=== PATIENT | female | born 1945 | race Caucasian/White ===

== ENCOUNTER → 2016-07-09 | Outpatient (CLI) | payer OTHER ==
[~2016-07-09] MED LIST: ASPI-435 PO; ASPI81TA28 PO; AZEL30SP; B-COTAB18 PO; CALC500C70 PO; CHOL100010 PO; CLON1TAB3 PO; CYCL5TAB PO; DIAZ10TA3 PO; ESTR0.5T3 PO; FERR325T51 PO; FLUT0.0529 NAE; GABA1CAP PO; GREE150C5 PO; HYDR-4079 PO; IMD/2 PO; LEVO112T2 PO; LEVO125T72 PO; LUTE15CA PO; OMEG10007 PO; OXYC15TA89 PO; OXYC20TA50 PO; POLY335025 PO; PRLSR20 PO; PROG1CAP PO; QUET1TAB7 PO; RISE150T PO
[2016-07-09 19:11] LABS: URINE APPEARANCE CLEAR (CLEAR); URINE BILIRUBIN NEG (NEG); URINE COLOR DK YELLOW; URINE NITRITE NEG (NEG); UROBILINOGEN NEG (NEG)
[2016-07-09 19:12] LABS: MANUAL MICROSCOPIC REQUIRED? NO; REVIEW REQ? NO
== END | disposition home or self-care (01) ==
LOC: C.LAB 18:43
PROVIDERS: ATTEND Obstetrics & Gynecology
DX: R39.9 Unspecified symptoms and signs involving the genitourinary system (principal)

== ENCOUNTER 2016-07-11 00:22 | Emergency (ER) | payer OTHER ==
[~2016-07-11] VITALS: Ht 160 cm; Wt 55.0 kg
[~2016-07-11 00:22] MED LIST changes: -ASPI81TA28 PO; -ESTR0.5T3 PO; -GABA1CAP PO; -GREE150C5 PO; -LEVO112T2 PO; -LEVO125T72 PO; -LUTE15CA PO; -OMEG10007 PO; -OXYC20TA50 PO; -PROG1CAP PO
[2016-07-11 00:38] VITALS: BP 123/57; TEMP 36.7; Ht 160 cm; Wt 55.0 kg
[2016-07-11] MEDS ORDERED: XYLOCAINE 1%/SOD BICARB 20 ML VIAL INFIL ONE (01:00)
[2016-07-11] MEDS ORDERED: OXYC20TA50 PO ×2 (01:40→01:41)
--- NOTE | 2016-07-11 02:30 | EMERGENCY ROOM VISIT NOTE ---
History Report prepared by Keeley: Zak Dunn Under the Supervision of: Dr. Jefferson Mancia M.D. First contact with patient: 00:46 Chief Complaint: FALL Stated Complaint: FELL,HIT HEAD,CUT FOREHEAD,S/P SPINAL SURGERY History of Present Illness The patient is a 70 year old female who presents to the Emergency Room with complaints of an acute fall that occurred earlier tonight. The patient landed on her right knee, then hit her right hand and head on the right side. The patient has chronic back pain secondary to a spinal fusion one month ago in [place]. She came to the ED to make sure her spine was not damaged. She does not have increased back pain. The patient has slight head and neck pain. She did not lose consciousness. She has not lost control of her bowel or bladder. She had pain medications prior to arrival. The patient is supposed to walk for one hour per day for her rehabilitation. She fell on her walk today when she was at [facility]. She believes her shoe stuck to the floor causing the fall. The patient has had a past surgery of the right knee performed by Dr. Kelley. Her tetanus is up to date. She is not on any blood thinners. Source of History: patient Onset: earlier tonight Position: other (global) Quality: other (fall) Timing: other (acute) Associated Symptoms: + headache, + neck pain, No LOC, No back pain, No urinary symptoms Review of Systems See HPI for pertinent positives & negatives. A total of 10 systems reviewed and were otherwise negative. Past Medical & Surgical Medical Problems: (1) Anxiety (2) Depression (3) Dyslipidemia (4) GERD (gastroesophageal reflux disease) (5) History of breast cancer (6) Hypothyroidism (7) Right knee DJD Surgical Problems: (1) H/O breast reconstruction (2) H/O nasal septoplasty (3) History of bladder surgery (4) History of mastectomy (5) Hx of excision of lamina of cervical vertebra for decompression of spinal cord Family History No pertinent family history Social History Smoking Status: Former Smoker Drug Use: none Marital Status: Housing Status: lives alone Occupation Status: retired Current/Historical Medications Scheduled Aspirin (Aspirin 81), 1 TAB PO QAM B-Complex Vitamins (Vitamin B Complex), 1 TAB PO QAM Calcium/Vitamin D (Os-Santo 500 Plus D), 2 TAB PO QPM Cholecalciferol (Vitamin D), 1,000 INTER.UNIT PO QAM Ferrous Sulfate (Iron Supplement), 1 TAB PO QAM Fluticasone Propionate (Nasal) (Flonase), 2 SPRY NEIL HS Levothyroxine Sodium (Synthroid), 125 MCG PO QAM Oxycodone Hcl (Oxycontin), 20 MG PO QAM Oxycodone Hcl (Oxycontin), 10 MG PO QPM Risedronate Sodium (Actonel), 1 TAB PO MONTHLY Scheduled PRN Clonazepam (Klonopin), 1 MG PO HS PRN for PN Cyclobenzaprine Hcl (Flexeril), 1 TAB PO HS PRN for Muscle Spasms Diazepam (Valium), 10 MG PO HS PRN for Sleep Hydrocodone/Acetaminophen 10MG/325MG ([place] 10MG/325MG), 0.5-1 TABS PO Q4H PRN for Pain Loperamide Hcl (Imodium), 2 MG PO DAILY PRN for PRN Omeprazole (Prilosec), 20 MG PO DAILY PRN for PRN Polyethylene Glycol 3350 (Miralax), 1 UNIT PO DAILY PRN for Constipation Quetiapine Fumarate (Seroquel), 50 MG PO HS PRN for Sleep Allergies Coded Allergies: Sulfa Antibiotics (Verified Allergy, Unknown, RASH, 07/11/16) Physical Exam Vital Signs Date Time Temp Pulse Resp B/P Pulse Ox O2 Delivery O2 Flow Rate FiO2 07/11/16 02:42 64 20 98 07/11/16 00:38 36.7 77 18 123/57 99 Room Air Physical Exam GENERAL: Patient is well appearing and in minimal distress. HEENT: 2.5 cm laceration to the right sabianism / face with mild venous oozing, no grossly contaminated. Mucous membranes moist, no nasal congestion, no scleral icterus. NECK: No stridor, no adenopathy, no meningismus, trachea is midline. Mild tenderness over right posterior neck, no midline tenderness. LUNGS: No dyspnea. Clear to auscultation and equal bilaterally. No wheeze, no rhonchi. HEART: Regular rate and rhythm. No murmurs, rubs, gallops appreciated. ABDOMEN: Soft, nontender, bowel sounds positive, no masses appreciated, no peritonitis. BACK: No midline tenderness, no CVA tenderness. Extensive midline back surgical scar, well healing. EXTREMITIES: Normal motion all extremities, no cyanosis, no edema. Tender to palpation of the right 5th metacarpal, full range of motion, normal sensation, normal capillary refill. Mild pain with range of the right knee with questionable crepitus initially which resolved after range of motion. NEUROLOGIC: Alert and oriented, no acute motor or sensory deficits, no focal weakness, cranial nerves grossly intact. SKIN: No rash, no jaundice, no diaphoresis. Skin is frail. Medical Decision & Procedures ER Provider Diagnostic Interpretation: X ray results and stated below per my interpretation. Other radiology results and stated below per my review and radiologist interpretation: CT Head: No intracranial hemorrhage or mass effect. CT C Spine: No acute fracture or dislocation. Multilevel degenerative spondylosis resulting in up to severe left neural foraminal narrowing at C4-C5. Radiologist: Misael Hopper MD. Three View Hand: No fracture or dislocation. Arthritic changes noted. Two View Right Knee: S/p knee replacement. Arthritic changes of patella. Possible slight effusion. No fracture or dislocation. Hardware in place. ED Course 0050: The patient was evaluated in room A2. A complete history and physical exam was performed. 0100: Lidocaine HCl 20 ml INFIL. 0230: Reevaluated the patient. Discussed results and discharge instructions: She verbalized understanding and agreement. The patient is ready for discharge. Medical Decision Differential: Intracranial Injury, Cervical Injury, Intrathoracic/Abdominal Injury, Neurologic Injuries, Fractures/Dislocations, Lacerations, Tetanus Status , amongst other pathologies entertained. 70 yr old very pleasant female with fall prior to arrival resulting right head injury and some neck, hand and knee pain. Imaging without ICH, fractures, dislocations. She recently had extensive back surgery though without any specifically new pains nor deficits seems reasonable to hold off on imaging. Sutured by oMde Hardwick PA-C. Stable and feeling well. Declines pain medications. Discussed wound care with patient and plan for suture removal. Impression Primary Impression: Fall Additional Impressions: Contusion of multiple sites, Laceration of face, Cervical spine degeneration Scribe Attestation The scribe's documentation has been prepared under my direction and personally reviewed by me in its entirety. I confirm that the note above accurately reflects all work, treatment, procedures, and medical decision making performed by me. Departure Information Dispostion Home / Self-Care Referrals Dani Wilburn D.O. (PCP) Forms HOME CARE DOCUMENTATION FORM, IMPORTANT VISIT INFORMATION Patient Instructions A Signature Page, ED Laceration Facial Sutr Tape, [facility] Additional Instructions Follow up in 5-6 days with your primary care provider or ED for removal of your stitches.
--- NOTE | 2016-07-11 02:32 | EMERGENCY ROOM VISIT NOTE ---
ED Visit Note Patient seen and evaluated at the request of my attending physician, Dr. Mancia, for a right lateral eyebrow laceration. Please see Dr. Mancia's dictation for full history of present illness and Emergency Department course outside of this repair. In short, the patient had a fall earlier this evening, and suffered subsequent 2.5 cm laceration. The laceration does gape and will require repair. Laceration repair. Patient elects to have their laceration repaired. Verbal consent was obtained to perform the procedure. There is an abundance of materials available for the procedure. Patient is not allergic to latex. Using sterile technique the wound was cleaned with Betadine. The area was sterilely draped. 4 ml of 1% buffered lidocaine was used to anesthetize the right eyebrow laceration. Once the patient was anesthetized, the wound was copiously irrigated under pressure with sterile saline. The wound was explored and there were no deep structures injured such as tendons, bone, or significant blood vessels. The laceration was repaired using 3 simple interrupted 5-0 nylon sutures with the wound edges being well approximated. Hemostasis was achieved. The area was cleaned with sterile saline and dressed with bacitracin ointment and bandage. Patient tolerated the procedure well without complications. Blood loss was negligible. Problem List Medical Problems: (1) Anxiety Status: Chronic (2) Depression Status: Chronic (3) Dyslipidemia Status: Chronic (4) GERD (gastroesophageal reflux disease) Status: Chronic (5) History of breast cancer Status: Resolved (6) Hypothyroidism Status: Chronic (7) Right knee DJD Status: Chronic Surgical Problems: (1) H/O breast reconstruction Permanent Comment: bilateral Status: Resolved (2) H/O nasal septoplasty Permanent Comment: 1997 Status: Resolved (3) History of bladder surgery Permanent Comment: x 2 for stress incontinence Status: Resolved (4) History of mastectomy Permanent Comment: bilateral for breast ca Status: Resolved (5) Hx of excision of lamina of cervical vertebra for decompression of spinal cord Status: Resolved Current/Historical Medications Scheduled Aspirin (Aspirin 81), 1 TAB PO QAM B-Complex Vitamins (Vitamin B Complex), 1 TAB PO QAM Calcium/Vitamin D (Os-Santo 500 Plus D), 2 TAB PO QPM Cholecalciferol (Vitamin D), 1,000 INTER.UNIT PO QAM Ferrous Sulfate (Iron Supplement), 1 TAB PO QAM Fluticasone Propionate (Nasal) (Flonase), 2 SPRY NEIL HS Levothyroxine Sodium (Synthroid), 125 MCG PO QAM Oxycodone Hcl (Oxycontin), 20 MG PO QAM Oxycodone Hcl (Oxycontin), 10 MG PO QPM Risedronate Sodium (Actonel), 1 TAB PO MONTHLY Scheduled PRN Clonazepam (Klonopin), 1 MG PO HS PRN for PN Cyclobenzaprine Hcl (Flexeril), 1 TAB PO HS PRN for Muscle Spasms Diazepam (Valium), 10 MG PO HS PRN for Sleep Hydrocodone/Acetaminophen 10MG/325MG ([place] 10MG/325MG), 0.5-1 TABS PO Q4H PRN for Pain Loperamide Hcl (Imodium), 2 MG PO DAILY PRN for PRN Omeprazole (Prilosec), 20 MG PO DAILY PRN for PRN Polyethylene Glycol 3350 (Miralax), 1 UNIT PO DAILY PRN for Constipation Quetiapine Fumarate (Seroquel), 50 MG PO HS PRN for Sleep Allergies Coded Allergies: Sulfa Antibiotics (Verified Allergy, Unknown, RASH, 07/11/16) Vital Signs Date Time Temp Pulse Resp B/P Pulse Ox O2 Delivery O2 Flow Rate FiO2 07/11/16 00:38 36.7 77 18 123/57 99 Room Air Departure Information Referrals Dani Wilburn D.O. (PCP) Patient Instructions A Signature Page, [facility]
[2016-07-11 02:42] VITALS: PULSE 64; O2SAT 98
--- NOTE | 2016-07-11 06:45 | DIAGNOSTIC IMAGING REPORT ---
CT OF THE CERVICAL SPINE CLINICAL HISTORY: Neck pain status post trauma COMPARISON STUDY: No previous studies for comparison. CT DOSE: 889.27 mGy.cm TECHNIQUE: CT scan of the cervical spine was performed from the skull base to the thoracic inlet. Images are reviewed in the axial, sagittal, and coronal planes. IV contrast was not administered for this examination. FINDINGS: The visualized portions of the lung apices reveal no evidence of pneumothorax. The prevertebral soft tissues are normal. No fractures or subluxations are visualized. There are moderate multilevel degenerative changes. There is multilevel foraminal narrowing, most severe at the C4-5 level on the left. There is a cervical levoscoliosis. There is an 8 mm sclerotic lesion within the C6 vertebra, which the absence of a known malignancy likely represents a bone island. IMPRESSION: No evidence of acute fracture or traumatic subluxation. Electronically signed by: Matias Tucker M.D. 07/11/2016 6:43 AM
--- NOTE | 2016-07-11 07:07 | DIAGNOSTIC IMAGING REPORT ---
RIGHT HAND MIN 3 VIEWS ROUTINE CLINICAL HISTORY: Right lateral hand pain following fall. COMPARISON: None FINDINGS: No acute fracture is identified. There is moderate arthritis within several articulations of the right hand. The trapezium may have been resected. IMPRESSION: No acute fracture or dislocation of the right hand. Electronically signed by: Conner Hanna M.D. 07/11/2016 7:05 AM
--- NOTE | 2016-07-11 07:08 | DIAGNOSTIC IMAGING REPORT ---
RIGHT KNEE 3 VIEWS CLINICAL HISTORY: Right knee pain following fall. COMPARISON: Right knee radiographs May 11, 2016 FINDINGS: Alignment of the total right knee arthroplasty is anatomic. There is no acute fracture. Hardware is intact. No definite joint effusion is identified. IMPRESSION: Status post total right knee arthroplasty. Hardware intact. No fracture. Electronically signed by: Conner Hanna M.D. 07/11/2016 7:06 AM
--- NOTE | 2016-07-11 07:13 | DIAGNOSTIC IMAGING REPORT ---
CT OF THE HEAD WITHOUT CONTRAST CLINICAL HISTORY: Fall with facial injury. COMPARISON STUDY: MRI of the brain March 15, [address] of the sinuses November 19, 2014. TECHNIQUE: Helical axial images of the head were obtained without IV contrast. Automated exposure control was utilized for the study. FINDINGS: No acute intracranial hemorrhage, midline shift or mass effect is present. Ventricular system is stable. Basilar cisterns are patent. No extra-axial collections are present. Do-white differentiation is preserved. There is deformity of both nasal bones which is likely old. This is similar to exam of November 19, 2013. No calvarial fracture is identified. IMPRESSION: 1. No acute intracranial findings. 2. No calvarial fracture. 3. Old bilateral nasal bone fractures. Electronically signed by: Conner Hanna M.D. 07/11/2016 7:12 AM
[2016-07-20] MEDS ORDERED: LEVO125T72 PO (12:42)
[2016-11-01] MEDS ORDERED: RISE150T PO (14:40)
[2016-11-01] MEDS ORDERED: GREE150C5 PO (14:43)
[2016-11-01] MEDS ORDERED: ESTR0.5T3 PO (14:43)
[2016-11-01] MEDS ORDERED: LUTE15CA PO (14:43)
[2016-11-01] MEDS ORDERED: OMEG10007 PO (14:43)
[2016-11-01] MEDS ORDERED: ASPI81TA28 PO (14:43)
[2016-11-01] MEDS ORDERED: PROG1CAP PO (14:43)
[2016-11-02] MEDS ORDERED: GABA1CAP PO (09:55)
== END 2016-07-11 02:44 | disposition home or self-care (01) ==
LOC: C.EDB 00:25 → C.EDA 02:44
DX: T14.8 Other injury of unspecified body region (principal); S01.81XA Laceration without foreign body of other part of head, initial encounter; W19.XXXA Unspecified fall, initial encounter; M47.812 Spondylosis without myelopathy or radiculopathy, cervical region; K21.9 Gastro-esophageal reflux disease without esophagitis; E78.5 Hyperlipidemia, unspecified; E03.9 Hypothyroidism, unspecified; M17.11 Unilateral primary osteoarthritis, right knee; Z85.3 Personal history of malignant neoplasm of breast; F41.9 Anxiety disorder, unspecified; F32.9 Major depressive disorder, single episode, unspecified; Z87.891 Personal history of nicotine dependence; Z79.82 Long term (current) use of aspirin; Z79.899 Other long term (current) drug therapy

== ENCOUNTER 2016-07-20 22:18 | Emergency (ER) | payer OTHER ==
[~2016-07-20] VITALS: Ht 160 cm; Wt 54.3 kg
[~2016-07-20 22:18] MED LIST changes: -AZEL30SP; +LEVO125T72 PO; -OXYC15TA89 PO; +OXYC20TA50 PO
[2016-07-20 22:20] VITALS: Ht 160 cm; Wt 54.3 kg
[2016-07-20 22:41] VITALS: BP 115/63; PULSE 81; TEMP 36.5; O2SAT 98
[2016-07-20] MEDS ORDERED: LEVO112T2 PO (22:52)
--- NOTE | 2016-07-21 21:41 | EMERGENCY ROOM VISIT NOTE ---
ED Visit Note First contact with patient: 22:25 CHIEF COMPLAINT: Suture removal HISTORY OF PRESENT ILLNESS: This 70-year-old female patient returns to the ED today for removal of sutures that were placed 9 days ago. There has been no swelling, redness, or drainage from the wound. The patient feels like the laceration is healing well. REVIEW OF SYSTEMS: A 6 system review of systems was completed with positives and pertinent negatives listed in the HPI. PMH: Unchanged from previous visit. ALLERGIES: Sulfa PHYSICAL EXAM: Vital Signs: Reviewed Nurse's notes, vital signs stable. GENERAL : White female, in no acute distress. SKIN: There is a sutured wound on the right lateral eyebrow with no signs of infection. There is no erythema, swelling, or tenderness. EMERGENCY DEPARTMENT COURSE: 3 sutures were removed without any difficulty and there was no separation of the wound edges. The patient was discharged home in good condition. Problem List Medical Problems: (1) Anxiety Status: Chronic (2) Depression Status: Chronic (3) Dyslipidemia Status: Chronic (4) GERD (gastroesophageal reflux disease) Status: Chronic (5) History of breast cancer Status: Resolved (6) Hypothyroidism Status: Chronic (7) Right knee DJD Status: Chronic Surgical Problems: (1) H/O breast reconstruction Permanent Comment: bilateral Status: Resolved (2) H/O nasal septoplasty Permanent Comment: 1997 Status: Resolved (3) History of bladder surgery Permanent Comment: x 2 for stress incontinence Status: Resolved (4) History of mastectomy Permanent Comment: bilateral for breast ca Status: Resolved (5) Hx of excision of lamina of cervical vertebra for decompression of spinal cord Status: Resolved Current/Historical Medications Scheduled B-Complex Vitamins (Vitamin B Complex), 1 TAB PO QAM Calcium/Vitamin D (Os-Santo 500 Plus D), 2 TAB PO QPM Cholecalciferol (Vitamin D), 1,000 INTER.UNIT PO QAM Cyclobenzaprine Hcl (Flexeril), 1 TAB PO DAILY Ferrous Sulfate (Iron Supplement), 1 TAB PO BID Fluticasone Propionate (Nasal) (Flonase), 2 SPRY NEIL HS Levothyroxine Sodium (Synthroid), 125 MCG PO 5XWK Levothyroxine Sodium (Synthroid), 0.5 TAB PO MON&THUR Oxycodone Hcl (Oxycontin), 20 MG PO QAM Oxycodone Hcl (Oxycontin), 10 MG PO QPM Scheduled PRN Clonazepam (Klonopin), 1 MG PO HS PRN for PN Diazepam (Valium), 10 MG PO HS PRN for Sleep Hydrocodone/Acetaminophen 10MG/325MG ([place] 10MG/325MG), 0.5-1 TABS PO Q4H PRN for Pain Loperamide Hcl (Imodium), 2 MG PO DAILY PRN for PRN Omeprazole (Prilosec), 20 MG PO DAILY PRN for PRN Polyethylene Glycol 3350 (Miralax), 1 UNIT PO DAILY PRN for Constipation Quetiapine Fumarate (Seroquel), 50 MG PO HS PRN for Sleep Allergies Coded Allergies: Sulfa Antibiotics (Verified Allergy, Unknown, RASH, 07/11/16) Vital Signs Date Time Temp Pulse Resp B/P Pulse Ox O2 Delivery O2 Flow Rate FiO2 07/20/16 22:41 36.5 81 18 98 07/20/16 22:20 36.5 81 18 115/63 98 Room Air Departure Information Impression Primary Impression: Encounter for removal of sutures Dispostion Home / Self-Care Condition GOOD Referrals Dani Wilburn D.O. (PCP) Forms HOME CARE DOCUMENTATION FORM, IMPORTANT VISIT INFORMATION Patient Instructions [facility], ED Scar Tips to Minimize Additional Instructions Wash off any remaining debris and return to activity as tolerated.
[2016-11-01] MEDS ORDERED: RISE150T PO (14:40)
[2016-11-01] MEDS ORDERED: OMEG10007 PO (14:43)
[2016-11-01] MEDS ORDERED: ASPI81TA28 PO (14:43)
[2016-11-01] MEDS ORDERED: ESTR0.5T3 PO (14:43)
[2016-11-01] MEDS ORDERED: GREE150C5 PO (14:43)
[2016-11-01] MEDS ORDERED: PROG1CAP PO (14:43)
[2016-11-01] MEDS ORDERED: LUTE15CA PO (14:43)
[2016-11-02] MEDS ORDERED: GABA1CAP PO (09:55)
== END 2016-07-20 22:41 | disposition home or self-care (01) ==
LOC: C.EDB 22:19 → C.EDD 22:41
DX: Z48.02 Encounter for removal of sutures (principal); F41.9 Anxiety disorder, unspecified; E78.5 Hyperlipidemia, unspecified; E03.9 Hypothyroidism, unspecified; F32.9 Major depressive disorder, single episode, unspecified; K21.9 Gastro-esophageal reflux disease without esophagitis; Z85.3 Personal history of malignant neoplasm of breast; Z90.10 Acquired absence of unspecified breast and nipple; Z79.899 Other long term (current) drug therapy; Z88.2 Allergy status to sulfonamides

== ENCOUNTER → 2016-09-04 | Outpatient (CLI) | payer OTHER ==
[~2016-09-04] MED LIST changes: -ASPI-435 PO; +ASPI81TA28 PO; +ESTR0.5T3 PO; +GABA1CAP PO; +GREE150C5 PO; +LEVO112T2 PO; +LUTE15CA PO; +OMEG10007 PO; +PROG1CAP PO
--- NOTE | 2016-09-04 19:58 | DIAGNOSTIC IMAGING REPORT ---
SCOLIOSIS 2 VIEW (AP LAT) CLINICAL HISTORY: Scoliosis COMPARISON STUDY: 10/17/2015 FINDINGS: There is been interval thoracolumbar spinal rodding with placement of bilateral sacroiliac bolts. There are moderate multilevel degenerative changes. There is a lumbar levoscoliosis of 38 degrees. There is a thoracic dextroscoliosis of 21 degrees. IMPRESSION: 1. Thoracolumbar scoliosis as described above 2. Interval thoracolumbar spinal rodding with placement of bilateral sacroiliac bolts 3. No conventional radiographic evidence of hardware fracture Electronically signed by: Matias Tucker M.D. 09/04/2016 7:57 PM Dictated Date/Time: 09/04/2016 7:54 PM
== END | disposition home or self-care (01) ==
LOC: C.RAD 19:15
PROVIDERS: ATTEND Internal Medicine
DX: M41.115 Juvenile idiopathic scoliosis, thoracolumbar region (principal)

== ENCOUNTER → 2016-11-01 | Outpatient (CLI) | payer OTHER ==
--- NOTE | 2016-11-01 14:21 | DIAGNOSTIC IMAGING REPORT ---
VIDEO SWALLOW HISTORY: K44.9 Hiatal [id number] Schatzki's [id number] TECHNIQUE: Video fluoroscopic evaluation of swallowing was performed in the AP and lateral projections by the speech pathology staff. The patient is fed nectar-thick and thin liquid barium, a barium coated wafer, and barium pudding. FLUOROSCOPY TIME: 2.9 minutes. A cine loop submitted. COMPARISON STUDY: None. FINDINGS: There is normal hyoid excursion and epiglottic deflection. No significant penetration or aspiration identified. Swallowing function is within normal limits. Mild vallecular residue. Mild posterior impression along the upper esophagus from the small anterior osteophytes within the lower cervical spine. However, this does not result in significant stenosis. Mild esophageal dysmotility. IMPRESSION: 1. No aspiration identified. Mild vallecular residue. Mild esophageal dysmotility. 2. Please see the speech pathologist report for detailed findings and recommendations. Electronically signed by: Jaden Nguyen M.D. 11/01/2016 2:20 PM Dictated Date/Time: 11/01/2016 2:18 PM
--- NOTE | 2016-11-01 18:32 | SWALLOWING EVALUATION ---
REFERRING SPEECH PATHOLOGIST: n/a HISTORY: This 71 year-old female was referred for a VFSS at [facility] in order to address c/o intermittent dysphagia and coughing on her own secretions. The patient has a PMH significant for breast CA s/p bilateral mastectomy, GERD (omeprazole qd) with EGD one year ago that found a Schatzki's ring (was dilated) and hiatal hernia, falls s/p placement of titanium rods from T-spine through lumbar spine, hypothyroidism and anxiety/depression. The patient has an EGD scheduled for 11/02/16. Currently the patient's diet level is regular. PROCEDURE: The patient was seen in the Radiology Department of [facility] for the VFSS. Cursory examination of the oral cavity revealed adequate dentition. Movement of the articulators was WNL. The patient was seated on a stool and was viewed in both the Anterior-Posterior (A-P) and Lateral planes. Volitional phonation exercises completed in the A-P plane revealed bilateral vocal fold movement and vocal intensity within functional limits. In the lateral plane, the patient was given the following boluses: 1 tsp. thin liquid barium x 2, sequential swallows of thin liquid barium self-presented from a cup, 1 tsp. nectar-thick liquid barium, single swallow nectar-thick liquid barium self-presented from a cup, 1 tsp. barium pudding, and 1 club cracker with barium pudding. The patient was then repositioned into the A-P plane and given the following boluses: 1 tsp. barium pudding followed by liquid wash with single swallow thin liquid barium self-presented from a cup. RESULTS: Oral Stage: Lip closure, tongue control during oral bolus hold, bolus preparation, and bolus transport were WNL. There was no oral residue after the swallow. Initiation of the pharyngeal swallow occurred when the bolus head was at the posterior angle of the ramus. The oral stage of the swallow was WNL. Pharyngeal Stage: Soft palate elevation and laryngeal elevation were complete. Anterior hyoid excursion was incomplete. Epiglottic inversion and laryngeal vestibular closure were complete. Pharyngeal stripping wave was present. Pharyngeal contraction was complete. There was partial distention and duration of PES opening. Tongue base retraction was complete. There was no significant pharyngeal residue after the swallow. There was no penetration or aspiration during this study. Movement through the UES was partially obstructed due to incomplete hyoid excursion and incomplete PES opening. The pharyngeal stage of the swallow was functionally WNL. Esophageal Stage: Marked dysmotility in the proximal esophagus as a pudding bolus transited the esophagus. Thin liquid wash was effective in clearing the bolus from the esophagus. SUMMARY/RECOMMENDATIONS: This patient presents with normal oral-pharyngeal swallow function; however she demonstrated s/s esophageal dysfunction. The following is recommended: 1. Regular as tolerated; choose SLIPPERY foods (written information given re: slippery diet for esophageal dysfunction) 2. Compensatory Strategies: Alternate solids with liquids during meals; sit FULLY UPRIGHT with all oral intake and for 20-30 minutes following meals; keep head of bed elevated AT LEAST 30-degrees at all times-especially when sleeping 3. Complete EGD as scheduled. A summary of the results and recommendations was discussed with the patient immediately following the study. She is anticipating f/u with the referring physician including EGD scheduled for 11/02/16. Thank you for referral of this patient. Please contact me at if any additional information is needed.
== END | disposition home or self-care (01) ==
LOC: C.RAD 13:17
PROVIDERS: ATTEND Internal Medicine
DX: K44.9 Diaphragmatic hernia without obstruction or gangrene (principal); K22.2 Esophageal obstruction; R13.10 Dysphagia, unspecified

== ENCOUNTER → 2016-11-02 | Day surgery (SDC) | payer OTHER ==
[2016-11-01 14:45] VITALS: Ht 160 cm; Wt 53.2 kg
[~2016-11-02] VITALS: Ht 160 cm; Wt 53.2 kg
[~2016-11-02] MED LIST changes: -CLON1TAB3 PO; +LIDOCAINE HCL 2% 2 ML VIAL (20MG/ML) ONE; +MIDAZOLAM HCL 1 MG/ML 2ML VIAL ONE; +ONDANSETRON INJ 2 MG/ML 2 ML VIAL ONE; +PROPOFOL IV EMULSION 10 MG/ML 20 ML VIAL IV ONE
--- NOTE | 2016-11-02 10:15 | Endo History and Physical ---
History & Physical Date of Service: Nov 02, 2016. Chief Complaint: Dysphagia, Schatzki 's ring, Hiatal hernia Referring Physician: Dani Wilburn History of Present Illness 71 yo CF who presents for EGD secondary to dysphagia, Schatzki's ring and Hiatal hernia. Past Medical History Arthritis, Reflux, Blood Dyscrasias, High Cholesterol, Thyroid Disease, Other Past Surgical History Hx Cardiac Surgery: No Hx Internal Defibrillator: No Hx Pacemaker: No Hx Abdominal Surgery: No Hx of Implantable Prosthesis: No Hx Post-Op Nausea and Vomiting: No Hx Cancer Surgery: Yes (BLT MASTECTOMY WITH IMPLANT BASED RECONSTRUCTION) Hx Thoracic Surgery: No Hx Orthopedic: Yes (7-4 TO PELVIC FUSION, LT/RT BUINONECTOMY,MULT KNEE REPAIRS, THUMB SURGERY X2) Hx Urinary Tract Surgery: Yes (BLADDER SURGERY X2) Family History None Social History Smoking Status: Former Smoker Hx Substance Use: Yes ("MARIJUANA USE AGES AGO") Hx Alcohol Use: Yes (OCCASIONAL) Allergies Coded Allergies: Sulfa Antibiotics (Verified Allergy, Unknown, RASH, 11/01/16) Current Medications Reported Home Medications Medications Dose Route/Sig Max Daily Dose Days Date Category Dose Instructions Neurontin (Gabapentin) 100 Mg Cap 2 Cap PO TID 30 11/02/16 Reported Green Tea Extract (Green Tea (Camillia Sinensis)) 150 Mg Cap 1 Cap PO DAILY 11/01/16 Reported Progesterone (Progesterone Micronized) 100 Mg Cap 1 Cap PO AFTERNOON 11/01/16 Reported Estradiol 0.5 Mg Tab 1 Tab PO QAM 11/01/16 Reported Aspirin Ec (Aspirin) 81 Mg Tab 81 Mg PO DAILY 11/01/16 Reported Lutein (Lutein-Zeaxanthin) 1 Cap Cap 1 Cap PO QAM 11/01/16 Reported [place]-3 (Fish Oil) 1 Ea Cap 1 Cap PO DAILY 11/01/16 Reported Actonel (Risedronate Sodium) 150 Mg Tab 1 Tab PO MONTHLY 11/01/16 Reported Synthroid (Levothyroxine Sodium) 112 Mcg Tab 0.5 Tab PO MON&THUR 07/20/16 Reported Oxycontin (Oxycodone Hcl) 20 Mg Tab 10-20 Mg PO UD PRN 07/11/16 Reported Flexeril (Cyclobenzaprine Hcl) 5 Mg Tab 1 Tab PO BID PRN 09/28/15 Reported Iron Supplement (Ferrous Sulfate) 325 Mg Tab 1 Tab PO QAM 09/14/15 Reported Prilosec (Omeprazole) 20 Mg Capcr 20 Mg PO QAM 09/14/15 Reported Imodium (Loperamide HCl) 2 Mg Cap 2 Mg PO DAILY PRN 02/01/15 Reported Synthroid (Levothyroxine Sodium) 125 Mcg Tab 125 Mcg PO 5XWK 02/01/15 Reported [place] 500 Plus D (Calcium/Vitamin D) Tab 2 Tab PO QPM 02/01/15 Reported Flonase (Fluticasone Propionate (Nasal)) 50 Mcg/Act Spr 2 [place] NEIL HS PRN 02/01/15 Reported Vitamin D (Cholecalciferol) 1,000 Inter.unit Tab 1,000 Inter.unit PO QAM 02/01/15 Reported Vitamin B Complex (B-Complex Vitamins) 1 Tab Tab 1 Tab PO QAM 02/24/14 Reported Miralax (Polyethylene Glycol 3350) 1 Pow Pow 1 Unit PO DAILY PRN 02/24/14 Reported Valium (Diazepam) 10 Mg Tab 10 Mg PO HS PRN 02/24/[address] WITH MEDICATION Seroquel (Quetiapine Fumarate) 25 Mg Tab 50 Mg PO HS PRN 02/24/14 Reported [place] 10MG/325MG (Acetaminophen/Hydrocodone Bitart) Tab 0.5-1 Tabs PO Q4H PRN 02/24/14 Reported PRN PAIN Vital Signs Weight (Kilograms): 53.18 Height (Feet): 5 Height (Inches): 3 Date Time Temp Pulse Resp B/P Pulse Ox O2 Delivery O2 Flow Rate FiO2 11/02/16 10:04 36.4 46 20 93/55 100 Room Air Physical Exam General Appearance: WD/WN, no apparent distress Respiratory/Chest: Auscultation: breath sounds normal Cardiovascular: Heart Auscultation: RRR Abdomen: Bowel Sounds: normal Inspection & Palpation: soft, non-distended, no tenderness, guarding & rebound Assessment and Plan Assessment: 71 yo CF who presents for EGD secondary to dysphagia, Schatzki's ring and Hiatal hernia. Plan: Proceed with EGD.
--- NOTE | 2016-11-02 10:26 | Discharge Instructions ---
Endoscopy Patient Instructions Date / Procedure(s) Performed Nov 02, 2016. EGD Allergy Information Coded Allergies: Sulfa Antibiotics (Verified Allergy, Unknown, RASH, 11/01/16) Discharge Date / Findings Nov 02, 2016. Hiatal hernia Medication Instructions OK to resume all medications today as prescribed Reported Home Medications Medications Dose Route/Sig Max Daily Dose Days Date Category Dose Instructions Neurontin (Gabapentin) 100 Mg Cap 2 Cap PO TID 30 11/02/16 Reported Green Tea Extract (Green Tea (Camillia Sinensis)) 150 Mg Cap 1 Cap PO DAILY 11/01/16 Reported Progesterone (Progesterone Micronized) 100 Mg Cap 1 Cap PO AFTERNOON 11/01/16 Reported Estradiol 0.5 Mg Tab 1 Tab PO QAM 11/01/16 Reported Aspirin Ec (Aspirin) 81 Mg Tab 81 Mg PO DAILY 11/01/16 Reported Lutein (Lutein-Zeaxanthin) 1 Cap Cap 1 Cap PO QAM 11/01/16 Reported [place]-3 (Fish Oil) 1 Ea Cap 1 Cap PO DAILY 11/01/16 Reported Actonel (Risedronate Sodium) 150 Mg Tab 1 Tab PO MONTHLY 11/01/16 Reported Synthroid (Levothyroxine Sodium) 112 Mcg Tab 0.5 Tab PO MON&THUR 07/20/16 Reported Oxycontin (Oxycodone Hcl) 20 Mg Tab 10-20 Mg PO UD PRN 07/11/16 Reported Flexeril (Cyclobenzaprine Hcl) 5 Mg Tab 1 Tab PO BID PRN 09/28/15 Reported Iron Supplement (Ferrous Sulfate) 325 Mg Tab 1 Tab PO QAM 09/14/15 Reported Prilosec (Omeprazole) 20 Mg Capcr 20 Mg PO QAM 09/14/15 Reported Imodium (Loperamide HCl) 2 Mg Cap 2 Mg PO DAILY PRN 02/01/15 Reported Synthroid (Levothyroxine Sodium) 125 Mcg Tab 125 Mcg PO 5XWK 02/01/15 Reported Os-[place] 500 Plus D (Calcium/Vitamin D) Tab 2 Tab PO QPM 02/01/15 Reported Flonase (Fluticasone Propionate (Nasal)) 50 Mcg/Act Spr 2 [place] NEIL HS PRN 02/01/15 Reported Vitamin D (Cholecalciferol) 1,000 Inter.unit Tab 1,000 Inter.unit PO QAM 02/01/15 Reported Vitamin B Complex (B-Complex Vitamins) 1 Tab Tab 1 Tab PO QAM 02/24/14 Reported Miralax (Polyethylene Glycol 3350) 1 Pow Pow 1 Unit PO DAILY PRN 02/24/14 Reported Valium (Diazepam) 10 Mg Tab 10 Mg PO HS PRN 02/24/[address] WITH MEDICATION Seroquel (Quetiapine Fumarate) 25 Mg Tab 50 Mg PO HS PRN 02/24/14 Reported [place] 10MG/325MG (Acetaminophen/Hydrocodone Bitart) Tab 0.5-1 Tabs PO Q4H PRN 02/24/14 Reported PRN PAIN Provider Instructions Activity Restrictions - No exercising or heavy lifting for 24 hours. - Do not drink alcohol the day of the procedure. - Do not drive a car or operate machinery until the day after the procedure. - Do not make any important decisions or sign important papers in 24 hours after the procedure. Following Day: - Return to full activity which may include returning to work/school. Diet Start your diet with liquids and light foods (jello, soup, juice, toast). Then eat your usual diet if not nauseated. Treatment For Common After Affects For mild abdominal pain, bloating, or excessive gas: - Rest - Eat lightly - Lie on right side Follow-Up Information Follow-up with Dani Wilburn as scheduled Anesthesia Information What You Should Know You have had a procedure that required some medicine to reduce anxiety and discomfort. This treatment is called moderate sedation. After receiving the treatment, you may be sleepy, but you will be able to breathe on your own. The effects of the treatment may last for several hours. Follow these instructions along with Activity/Diet recommendations noted above: * Do NOT do anything where dizziness or clumsiness would be dangerous. * Rest quietly at home today, then you can be up and about tomorrow. * Have a responsible person stay with you the rest of today. * You may have had an I.V. today. If so, you may take the dressing off later today. Recommendations Call your doctor if: * Trouble breathing * Continuous vomiting for more than 24 hours * Temperature above 101 degrees * Severe abdominal pain or bloating * Pain not relieved by pain medicine ordered * There is increased drainage or redness from any incision * A large amount of rectal bleeding greater than 2-3 tablespoons. (If you had a polyp/s removed or have hemorrhoids, a small amount of blood - from the rectum is to be expected.) * You have any unanswered questions or concerns. IN THE EVENT OF A SERIOUS EMERGENCY, GO TO THE NEAREST EMERGENCY ROOM Your discharge instructions were prepared by provider Michael Connor. Patient Instructions Signature Page Ingrid Lugo Patient (or Guardian) Signature/Date: I have read and understand the instructions given to me by my caregivers. Caregiver/RN/Doctor Signature/Date: The above-named patient and/or guardian has received patient instructions on this date. + Original Patient Signature Page (only) stays with chart. Please make copy for patient.
--- NOTE | 2016-11-02 10:35 | GI REPORT ---
Procedure Date: 11/02/2016 10:09 AM Procedure: Upper GI endoscopy Indications: Dysphagia Medicines: Monitored Anesthesia Care Complications: No immediate complications. Estimated Blood Loss: Estimated blood loss: none. Procedure: Pre-Anesthesia Assessment: - Prior to the procedure, a History and Physical was performed, and patient medications and allergies were reviewed. The patient's tolerance of previous anesthesia was also reviewed. The risks and benefits of the procedure and the sedation options and risks were discussed with the patient. All questions were answered, and informed consent was obtained. Prior Anticoagulants: The patient has taken no previous anticoagulant or antiplatelet agents. ASA Grade Assessment: II - A patient with mild systemic disease. After reviewing the risks and benefits, the patient was deemed in satisfactory condition to undergo the procedure. After obtaining informed consent, the endoscope was passed under direct vision. Throughout the procedure, the patient's blood pressure, pulse, and oxygen saturations were monitored continuously. The scope was introduced through the mouth, and advanced to the second part of duodenum. The upper GI endoscopy was accomplished without difficulty. The patient tolerated the procedure well. Findings: The esophagus was normal. A small hiatus hernia was present. The examined duodenum was normal. Impression: - Normal esophagus. - Small hiatus hernia. - Normal examined duodenum. - No specimens collected. Recommendation: - Resume previous diet. - Continue present medications. - Return to primary care physician as previously scheduled. Michael Connor, 11/02/2016 10:34:02 AM This report has been signed electronically. Note Initiated On: 11/02/2016 10:09 AM I attest to the content of the Intraoperative Record and orders documented therein, exceptions below
--- NOTE | 2016-11-02 11:09 | Anesthesiology Progress Note ---
Anesthesia Post Op Note Date & Time Nov 02, 2016 at 11:07 Vital Signs Pain Intensity: 0 Vital Signs Past 12 Hours Date Time Temp Pulse Resp B/P Pulse Ox O2 Delivery O2 Flow Rate FiO2 11/02/16 10:41 47 16 97/49 100 Room Air 11/02/16 10:27 55 16 110/62 98 Room Air 4 11/02/16 10:04 36.4 46 20 93/55 100 Room Air Notes Mental Status: alert / awake / arousable, participated in evaluation Pt Amnestic to Procedure: Yes Nausea / Vomiting: adequately controlled Pain: adequately controlled Airway Patency, RR, SpO2: stable & adequate BP & HR: stable & adequate Hydration State: stable & adequate Anesthetic Complications: no major complications apparent
[2016-11-02 11:11] VITALS: BP 102/48; PULSE 52; O2SAT 98
== END | disposition home or self-care (01) ==
LOC: C.GI 09:28
PROVIDERS: ATTEND Internal Medicine
DX: R13.10 Dysphagia, unspecified (principal); K44.9 Diaphragmatic hernia without obstruction or gangrene; Z88.2 Allergy status to sulfonamides; Z68.20 Body mass index [BMI] 20.0-20.9, adult; Z96.651 Presence of right artificial knee joint; Z87.891 Personal history of nicotine dependence; Z98.890 Other specified postprocedural states; Z80.3 Family history of malignant neoplasm of breast

== ENCOUNTER → 2016-12-13 | Outpatient (CLI) | payer OTHER ==
[~2016-12-13] MED LIST changes: -LIDOCAINE HCL 2% 2 ML VIAL (20MG/ML) ONE; -MIDAZOLAM HCL 1 MG/ML 2ML VIAL ONE; -ONDANSETRON INJ 2 MG/ML 2 ML VIAL ONE; -PROPOFOL IV EMULSION 10 MG/ML 20 ML VIAL IV ONE
--- NOTE | 2016-12-13 15:03 | DIAGNOSTIC IMAGING REPORT ---
BILATERAL KNEES 4 VIEWS CLINICAL HISTORY: Bilateral knee pain COMPARISON STUDY: No previous studies for comparison. FINDINGS: There are postsurgical changes of a total right knee arthroplasty and patellar resurfacing. There are no acute fractures. There is no radiographic evidence of a significant joint effusion. On the left, there are mild to moderate osteoarthritic changes involving the medial joint compartment. There are no acute fractures. There are no erosive or destructive changes. There is no conventional radiographic evidence of a joint effusion. IMPRESSION: 1. No acute fractures 2. Mild to moderate osteoarthritic changes involving the medial joint compartment of the left knee 3. Postsurgical changes of a total right knee arthroplasty. Electronically signed by: Matias Tucker M.D. 12/13/2016 3:01 PM Dictated Date/Time: 12/13/2016 3:00 PM
--- NOTE | 2016-12-13 15:18 | DIAGNOSTIC IMAGING REPORT ---
STANDING AP RADIOGRAPHS OF BOTH FEET AND OBLIQUE AND LATERAL RIGHT FOOT RADIOGRAPHS CLINICAL HISTORY: RIGHT BUNION. COMPARISON: None FINDINGS: Standing AP radiograph of the left foot demonstrates no fracture. No suspicious osseous lesion is present. Flexion at the PIP joints of the second and third toes is noted. Alignment of the right foot is anatomic. Tarsometatarsal joints are intact. There is no evidence for stress fracture. No suspicious osseous lesion is present. There is mild arthritis of several articulations within the right foot. IMPRESSION: 1. No acute fracture or dislocation of the right foot. No evidence for stress fracture. 2. Mild arthritis within several articulations of the right foot. Electronically signed by: Conner Hanna M.D. 12/13/2016 3:16 PM Dictated Date/Time: 12/13/2016 3:09 PM
== END | disposition home or self-care (01) ==
LOC: C.RDSM 14:20
PROVIDERS: ATTEND Physician Assistant
DX: M25.562 Pain in left knee (principal); M25.561 Pain in right knee; M21.611 Bunion of right foot; Z96.651 Presence of right artificial knee joint

== ENCOUNTER → 2016-12-25 | Outpatient (CLI) | payer OTHER ==
--- NOTE | 2016-12-25 12:35 | DIAGNOSTIC IMAGING REPORT ---
GI SERIES W/AIR ROUTINE CLINICAL HISTORY: R13.10 [id number] COMPARISON STUDY: None FLUOROSCOPY TIME: 2.4 minutes. 30 fluoroscopic spot images were acquired.. FINDINGS: The patient swallowed effervescent granules and barium without difficulty. There is disordered esophageal motility with tertiary contractions. No esophageal or gastric masses are visualized. There is a small sliding hiatal hernia. No duodenal bulb ulcers are visualized. Ligament Treitz is located in the normal anatomic position. There are overlying spinal rods. IMPRESSION: 1. Disordered esophageal motility 2. Small sliding hiatal hernia 3. No gastric or esophageal masses identified. Electronically signed by: Matias Tucker M.D. 12/25/2016 12:33 PM Dictated Date/Time: 12/25/2016 12:32 PM
== END | disposition home or self-care (01) ==
LOC: C.RAD 11:57
PROVIDERS: ATTEND Physician Assistant
DX: R13.10 Dysphagia, unspecified (principal); K22.8 Other specified diseases of esophagus

== ENCOUNTER 2016-12-26 21:43 | Emergency (ER) | payer OTHER ==
[~2016-12-26] VITALS: Ht 160 cm; Wt 58.4 kg
[2016-12-26 22:07] VITALS: Ht 160 cm; Wt 58.4 kg
[2016-12-26] MEDS ORDERED: SOAP SUDS ENEMA PR STA (22:50)
--- NOTE | 2016-12-26 23:36 | EMERGENCY ROOM VISIT NOTE ---
History First contact with patient: 22:35 Chief Complaint: CONSTIPATION Stated Complaint: CONSTIPATED - SPINAL FUSION PREVENTS TO BEND Nursing Triage Summary: patient reports having barium swallow yesterday with small amount of BM,BM two days prior,patient reports rectal pain and hx of rectocele with spinal fusion surgery in may 2016,patient reports rectal bleeding and states "It is something they told would happen after surgery",patient reports she oftens disimpacts herself and uses special attachment on her toilet as an enema History of Present Illness The patient is a 71 year old female who presents to the Emergency Room with complaints of severe constipation. The patient states she had a spinal fusion 6 months ago and usually has normal bowel movements, but occasionally has issues with constipation. She tried an enema at home but states that it was not successful. She had a little bit of bleeding after the enema. She has been trying MiraLAX without relief. She did not take any opiates today, but does take them at home. She had a barium swallow yesterday. She states that she had a small bowel movement yesterday, but her last normal bowel movement was "a number of days ago." She states she also tried senna without relief. She denies any numbness or weakness in her lower extremities. She denies any abdominal pain, but does report a feeling of fullness in her abdomen. She denies any nausea or vomiting. Review of Systems A complete 10 point review of systems was reviewed with the patient with pertinent positives and negatives as per history of present illness. All else were negative. Past Medical/Surgical History Medical Problems: (1) Anxiety (2) Depression (3) Dyslipidemia (4) GERD (gastroesophageal reflux disease) (5) History of breast cancer (6) Hypothyroidism (7) Right knee DJD Surgical Problems: (1) H/O breast reconstruction (2) H/O nasal septoplasty (3) History of bladder surgery (4) History of mastectomy (5) Hx of excision of lamina of cervical vertebra for decompression of spinal cord Family History No pertinent family history Social History Smoking Status: Former Smoker Drug Use: none Marital Status: Housing Status: lives alone Occupation Status: retired Current/Historical Medications Scheduled Aspirin (Aspirin Ec), 81 MG PO DAILY B-Complex Vitamins (Vitamin B Complex), 1 TAB PO QAM Calcium/Vitamin D ([place] 500 Plus D), 2 TAB PO QPM Cholecalciferol (Vitamin D), 1,000 INTER.UNIT PO QAM Estradiol (Estradiol), 1 TAB PO QAM Ferrous Sulfate (Iron Supplement), 1 TAB PO QAM Fish Oil ([place]-3), 1 CAP PO DAILY Gabapentin (Neurontin), 2 CAP PO TID Green Tea (Camillia Sinensis) (Green Tea Extract), 1 CAP PO DAILY Levothyroxine Sodium (Synthroid), 125 MCG PO 5XWK Levothyroxine Sodium (Synthroid), 0.5 TAB PO MON&THUR Lutein-Zeaxanthin (Lutein), 1 CAP PO QAM Omeprazole (Prilosec), 20 MG PO QAM Progesterone Micronized (Progesterone), 1 CAP PO AFTERNOON Risedronate Sodium (Actonel), 1 TAB PO MONTHLY Scheduled PRN Cyclobenzaprine Hcl (Flexeril), 1 TAB PO BID PRN for Muscle Spasms Diazepam (Valium), 10 MG PO HS PRN for Sleep Fluticasone Propionate (Nasal) (Flonase), 2 SPR[place] NEIL HS PRN for ALLERGIES Hydrocodone/Acetaminophen 10MG/325MG ([place] 10MG/325MG), 0.5-1 TABS PO Q4H PRN for Pain Loperamide Hcl (Imodium), 2 MG PO DAILY PRN for PRN Oxycodone Hcl (Oxycontin), 10-20 MG PO UD PRN for Pain Polyethylene Glycol 3350 (Miralax), 1 UNIT PO DAILY PRN for Constipation Quetiapine Fumarate (Seroquel), 50 MG PO HS PRN for Sleep Allergies Coded Allergies: Sulfa Antibiotics (Verified Allergy, Unknown, RASH, 11/01/16) Physical Exam Vital Signs Date Time Temp Pulse Resp B/P (MAP) Pulse Ox O2 Delivery O2 Flow Rate FiO2 12/26/16 23:48 36.5 61 18 117/43 98 12/26/16 22:07 36.5 68 18 119/62 100 Room Air Physical Exam VITALS: Vitals are noted on the nurse's note and reviewed by myself. Vital signs stable. GENERAL: This is a 71-year-old female, in no acute distress, nondiaphoretic, well-developed well-nourished. HEART: Regular rate and rhythm without murmurs gallops or rubs. LUNGS: Clear to auscultation bilaterally without wheezes, rales or rhonchi. ABDOMEN: Positive bowel sounds x 4. Soft, nontender to palpation. RECTAL: No hemorrhoids noted. A large fecal impaction is felt on exam. The stool is brown without blood. NEURO: Patient was alert and oriented to person place and time. Medical Decision & Procedures ED Course The patient was evaluated as above. Digital rectal exam was performed and I removed a large amount of stool from the rectum. Enema was ordered. I was informed by nursing staff that the patient had a large bowel movement and felt much better. I reevaluated the patient and she had significant relief. She be discharged. Discharge instructions were reviewed with the patient. The patient verbalized understanding of my assessment and treatment plan and was discharged home in good condition. Medical Decision Differential diagnosis includes fecal impaction, constipation, bowel obstruction , among others. The patient is a 71-year-old female who presents today complaining of constipation. Abdominal exam is benign without tenderness. Digital disimpaction was performed and a large amount of stool was removed from her rectum. She had a large bowel movement afterward and felt much better. I had a discussion with the patient regarding conservative measures for her constipation. I recommended that she take Colace at home and use MiraLAX as needed. She will follow-up with her primary care provider. The patient was independently evaluated by Dr. Lozada, ED attending physician, who agreed with my assessment and treatment plan. Based on the patient's presentation and work up, I feel the patient is stable for outpatient treatment. The patient was educated to return to the emergency department for any worsening of their current condition or new/concerning symptoms. She will follow up with her PCP. Medication reconciliation: I attest that I have personally reviewed the patient 's current medication list. Blood pressure screening: Patient was found to have normal blood pressure on screening and does not require follow-up. Impression Primary Impression: Fecal impaction Departure Information Dispostion Home / Self-Care Condition GOOD Referrals Dani Wilburn D.O. (PCP) Patient Instructions My [facility] Additional Instructions You should take Colace daily. Use MiraLAX as needed for any further constipation. Follow-up with your primary care provider this week. Return if you develop abdominal pain, vomiting, or any other worsening or new/ concerning symptoms.
--- NOTE | 2016-12-26 23:40 | EMERGENCY ROOM VISIT NOTE ---
ED Visit Note First contact with patient: 22:35 Patient was seen by our PA/INDUSTRIAL ENERGY ENGINEER. I was involved in the patient's care and did evaluate the patient myself. I was involved in the care throughout the ER stay. The patient presents with complaints of constipation. She has had a large bowel movement here in the emergency room. She feels improved, she is being discharged home.
[2016-12-26 23:48] VITALS: BP 117/43; PULSE 61; TEMP 36.5; O2SAT 98
== END 2016-12-26 23:49 | disposition home or self-care (01) ==
LOC: C.EDB 21:44
DX: K56.41 Fecal impaction (principal); Z98.1 Arthrodesis status; F41.9 Anxiety disorder, unspecified; F32.9 Major depressive disorder, single episode, unspecified; E78.5 Hyperlipidemia, unspecified; K21.9 Gastro-esophageal reflux disease without esophagitis; Z85.3 Personal history of malignant neoplasm of breast; E03.9 Hypothyroidism, unspecified; M17.9 Osteoarthritis of knee, unspecified; Z90.10 Acquired absence of unspecified breast and nipple; Z87.891 Personal history of nicotine dependence; Z79.82 Long term (current) use of aspirin; Z79.899 Other long term (current) drug therapy

== ENCOUNTER → 2017-01-04 | Outpatient (CLI) | payer OTHER ==
[2017-01-04 22:41] LABS: MANUAL MICROSCOPIC REQUIRED? NO; REVIEW REQ? NO; URINE APPEARANCE CLEAR (CLEAR); URINE BILIRUBIN NEG (NEG); URINE COLOR YELLOW; URINE EPITHELIAL CELL AUTO >30 /lpf (0-5); URINE NITRITE NEG (NEG); URINE SPECIFIC GRAVITY 1.024 (1.000-1.030); UROBILINOGEN NEG (NEG)
== END | disposition home or self-care (01) ==
LOC: C.LAB 22:14
PROVIDERS: ATTEND Obstetrics & Gynecology
DX: R39.9 Unspecified symptoms and signs involving the genitourinary system (principal)

== ENCOUNTER 2017-09-18 14:53 | Emergency (ER) | payer OTHER ==
[~2017-09-18] VITALS: Ht 160 cm; Wt 61.2 kg
[~2017-09-18 14:53] MED LIST changes: +GABA100C13 PO; -GABA1CAP PO
[2017-09-18 15:03] VITALS: TEMP 36.4; Ht 160 cm; Wt 61.2 kg
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
[2017-09-18] MEDS ORDERED: OPTIRAY 320 IV PRN (15:30)
[2017-09-18 15:47] LABS: BASO % 0.3 %; BASO ABS # 0.02 K/uL (0-0.2); EOS % 1.2 %; EOS ABS # 0.07 K/uL (0-0.5); HEMATOCRIT 42.5 % (37-47); HEMOGLOBIN 13.3 g/dL (12.0-16.0); IG# 0.02 K/uL (0.00-0.02); LYMPH % 23.3 %; LYMPH ABS # 1.35 K/uL (1.2-3.4); MEAN CORPUSCULAR HEMOGLOBIN 29.1 pg (25-34); MEAN CORPUSCULAR HGB CONC 31.3 g/dl (32-36); MEAN PLATELET VOLUME 10.3 fL (7.4-10.4); MONO % 6.2 %; MONO ABS # 0.36 K/uL (0.11-0.59); NEUT % 68.7 %; NEUT ABS # 3.97 K/uL (1.4-6.5); PLATELET COUNT 186 K/uL (130-400); RED CELL DISTRIBUTION WIDTH CV 12.6 % (11.5-14.5); RED CELL DISTRIBUTION WIDTH SD 42.5 fL (36.4-46.3); WHITE BLOOD COUNT 5.79 K/uL (4.8-10.8)
[2017-09-18 15:56] LABS: ISTAT CREATININE 0.7 mg/dl (0.6-1.3); ISTAT IONIZED CALCIUM 1.15 mmol/l (1.12-1.32); ISTAT POTASSIUM 3.9 mEq/L (3.3-5.0)
[2017-09-18 15:56] LABS: INR 0.9 (0.9-1.1); PTT PATIENT 21.4 SECONDS (21.0-31.0)
[2017-09-18 16:05] LABS: ALBUMIN 4.2 gm/dl (3.4-5.0); CALCIUM 8.8 mg/dl (8.5-10.1); CREATININE 0.67 mg/dl (0.60-1.20); POTASSIUM 3.8 mmol/L (3.5-5.1)
[2017-09-18 16:08] LABS: TOTAL PROTEIN 7.7 gm/dl (6.4-8.2)
[2017-09-18] MEDS ORDERED: LIOT5TAB PO (16:22)
[2017-09-18] MEDS ORDERED: RESV1CAP PO (16:22)
[2017-09-18] MEDS ORDERED: LIOT5TAB9 PO (16:22)
[2017-09-18] MEDS ORDERED: BIOT1CAP8 PO (16:22)
[2017-09-18] MEDS ORDERED: CHRO1TAB5 PO (16:22)
[2017-09-18] MEDS ORDERED: CLXOPS3 OPB (16:22)
[2017-09-18] MEDS ORDERED: SYN112 PO (16:22)
[2017-09-18] MEDS ORDERED: NRN100 PO (16:22)
[2017-09-18] MEDS ORDERED: MELA5CAP PO (16:22)
[2017-09-18] MEDS ORDERED: RISE1TAB33 PO (16:32)
[2017-09-18] MEDS ORDERED: FLUT0.15 NAE (16:32)
[2017-09-18] MEDS ORDERED: IBUP-1050 PO (16:32)
[2017-09-18] MEDS ORDERED: NIAC100T5 PO (16:32)
[2017-09-18] MEDS ORDERED: LRS10 PO (16:32)
[2017-09-18] MEDS ORDERED: FERR1TAB62 PO (16:32)
[2017-09-18] MEDS ORDERED: CYCL0.052 OPB (16:32)
[2017-09-18] MEDS ORDERED: COEN100C11 PO (16:32)
[2017-09-18] MEDS ORDERED: ASCO500T3 PO (16:32)
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
[2017-09-18] MEDS ORDERED: HYDR-4383 PO (17:44)
--- NOTE | 2017-09-18 18:05 | Pharmacy Progress Note ---
ED Pharmacist Progress Note Date of Service: Sep 18, 2017. Spoke to pharmacist Hosea to confirm the Rx for Lynx was in fact received electronically. He stated the Rx is filled and ready for pickup.
[2017-09-18 19:11] VITALS: BP 135/55; PULSE 52; O2SAT 98
== END 2017-09-18 19:13 | disposition home or self-care (01) ==
LOC: EDBD 14:53 → C.EDC 14:55
DX: S22.43XA Multiple fractures of ribs, bilateral, initial encounter for closed fracture (principal); S39.012A Strain of muscle, fascia and tendon of lower back, initial encounter; S20.219A Contusion of unspecified front wall of thorax, initial encounter; V89.2XXA Person injured in unspecified motor-vehicle accident, traffic, initial encounter; F41.9 Anxiety disorder, unspecified; F32.9 Major depressive disorder, single episode, unspecified; E78.5 Hyperlipidemia, unspecified; K21.9 Gastro-esophageal reflux disease without esophagitis; E03.9 Hypothyroidism, unspecified; Z87.891 Personal history of nicotine dependence; Z88.8 Allergy status to other drugs, medicaments and biological substances

== ENCOUNTER → 2017-10-08 | Outpatient (CLI) | payer OTHER ==
[~2017-10-08] MED LIST changes: +ASCO500T3 PO; -ASPI81TA28 PO; +BIOT1CAP8 PO; -CHOL100010 PO; +CHRO1TAB5 PO; +CLXOPS3 OPB; +COEN100C11 PO; +CYCL0.052 OPB; -CYCL5TAB PO; +FERR1TAB62 PO; -FERR325T51 PO; -FLUT0.0529 NAE; +FLUT0.15 NAE; -GABA100C13 PO; -GREE150C5 PO; +HYDR-4383 PO; +IBUP-1050 PO; -LEVO112T2 PO; -LEVO125T72 PO; +LIOT5TAB PO; +LIOT5TAB9 PO; +LRS10 PO; -LUTE15CA PO; +MELA5CAP PO; +NIAC100T5 PO; +NRN100 PO; -OMEG10007 PO; -OXYC20TA50 PO; -POLY335025 PO; +RESV1CAP PO; -RISE150T PO; +RISE1TAB33 PO; +SYN112 PO
--- NOTE | 2017-10-08 17:05 | DIAGNOSTIC IMAGING REPORT ---
SCOLIOSIS STUDY CLINICAL HISTORY: Spinal scoliosis with a history of spinal fusion surgery. FINDINGS: AP and lateral radiographs of the spine from a scoliosis study are compared to a study dated 09/04/2016. The skeletal structures are osteopenic. There are postoperative changes from extensive thoracolumbar spinal fusion with spinal rods in place. There is S-shaped thoracolumbar scoliosis. Thoracic dextrocurvature measures approximately 21 degrees, as measured from the superior endplate of T4 to the inferior endplate of T12. Lumbar levocurvature measures approximately 36 degrees, as measured from the superior endplate of L1 to the inferior endplate of L4. Iliac bolts are in place. There is pelvic tilt, with the left iliac crest elevated above the right. There is preservation of the cervical lordosis, the thoracic kyphosis, and the sacral kyphosis. There is straightening of the lumbar lordosis. Vertebral body height and alignment appear maintained throughout the spine on the sagittal view. Multilevel cervical spondylosis is noted. The lungs are clear as imaged. There is a nonobstructed abdominal bowel gas pattern, noting moderate colonic fecal retention. IMPRESSION: 1. S-shaped thoracolumbar scoliosis as above. This is similar in appearance to the 09/04/2016 examination. 2. Postoperative change as above. Dictated: 10/08/2017 4:15 PM Transcribed: 10/08/2017 5:04 PM [email or web address] Electronically signed by: Jimmie Mckeon M.D. 10/09/2017 3:32 PM Dictated Date/Time: 10/08/2017 4:15 PM
== END | disposition home or self-care (01) ==
LOC: C.RAD 15:24
PROVIDERS: ATTEND Internal Medicine
DX: S22.43XA Multiple fractures of ribs, bilateral, initial encounter for closed fracture (principal); X58.XXXA Exposure to other specified factors, initial encounter; M41.25 Other idiopathic scoliosis, thoracolumbar region

== ENCOUNTER → 2017-10-08 | Outpatient (CLI) | payer OTHER | END | disposition home or self-care (01) | LOC: C.LABSPEC 17:41 | PROVIDERS: ATTEND Obstetrics & Gynecology | DX: N76.2 Acute vulvitis (principal); N94.9 Unspecified condition associated with female genital organs and menstrual cycle ==

== ENCOUNTER → 2017-10-08 | Outpatient (CLI) | payer OTHER | END | disposition home or self-care (01) | LOC: C.PAPS 18:16 | PROVIDERS: ATTEND Obstetrics & Gynecology | DX: Z91.89 Other specified personal risk factors, not elsewhere classified (principal) ==